=== PATIENT | male | born 1965 | race Hispanic/Latino ===

== ENCOUNTER 2021-11-23 11:20 | Emergency (ER) | payer MEDICAID ==
[~2021-11-23] VITALS: Ht 172.7 cm; Wt 56.7 kg
--- OUTSIDE RECORDS SUMMARY | 2021-11-23 11:24 | XMS ---
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 PHONE: Unknown FARHANA BARNEY Nurse Practitioner: [facility] PHONE: [phone] Maria Luisa has no Care Guidelines for this patient. EAsad VISIT COUNT (12 MO.) 9 [facility] [address] [place] [address] TOTAL 11 NOTE: Visits indicate total known visits. ED/UCC VISIT TRACKING (12 MO.) 11/23/2021 11:22 [facility] [place] TYPE: Emergency COMPLAINT: - MEDICAL CLEARANCE/DETOX 11/21/2021 00:02 [facility] [place] TYPE: Emergency DIAGNOSES: 30237. Medical Clearance for detox treatment 51308. Contact with and (suspected) exposure to COVID-19 09/11/2021 16:03 [facility] [place] TYPE: Emergency DIAGNOSES: 85124. severe stomach pain . Alcohol dependence with withdrawal, uncomplicated . Generalized skin eruption due to drugs and medicaments taken internally . Vomiting, unspecified . Upper abdominal pain, unspecified 04/27/2021 18:20 [facility] TYPE: Emergency DIAGNOSES: - Alcohol abuse, uncomplicated - Withdrawal (Alcohol) - alchohol withdrawal 03/09/2021 13:08 [facility] [place] TYPE: Emergency DIAGNOSES: 17540. ETOH 00293. Alcohol dependence with withdrawal, uncomplicated . Alcohol abuse, uncomplicated 02/22/2021 20:50 [facility] [place] TYPE: Emergency DIAGNOSES: 34363. NAUSEA 52018. Nausea 69811. Alcohol abuse, uncomplicated 02/14/2021 11:36 [facility] [place] TYPE: Emergency DIAGNOSES: 62958. WITHDRAWL 21533. Alcohol abuse, uncomplicated 02/05/2021 03:40 [facility] [place] TYPE: Emergency DIAGNOSES: 67243. ETOH 34376. Alcohol use, unspecified with intoxication, uncomplicated 38999. Malingerer [conscious simulation] 01/22/2021 16:19 [facility] [place] TYPE: Emergency DIAGNOSES: 72311. ETOH Withdrawl 59531. Alcohol dependence with withdrawal, uncomplicated 12/14/2020 06:45 [facility] [place] TYPE: Emergency DIAGNOSES: [address] [address]. Alcohol dependence with withdrawal, uncomplicated 12[facility]2020 [facility] DIAGNOSES: 33179. ETOH Withdraw 38565. Alcohol use, unspecified with intoxication, uncomplicated INPATIENT VISIT TRACKING (12 MO.) No inpatient visits to display in this time frame [email or web address]
== END 2021-11-23 19:32 | disposition home or self-care (01) ==
LOC: ED 11:20
DX: F10.129 Alcohol abuse with intoxication, unspecified (principal); Y90.8 Blood alcohol level of 240 mg/100 ml or more
CPT/HCPCS: 36415; 70450; 72125; 80053; 83735; 85025; 85060; 85610; 85730; G0480; J2060; J3411; J7030